=== PATIENT | male | born 1955 | race Caucasian/White ===

== ENCOUNTER 2019-12-10 13:00 | Outpatient (AMB) | payer MEDICAID, SELFPAY ==
[2019-12-10 13:00] VITALS: BMI 20.7
--- NOTE | 2019-12-10 13:00 | CWCCLINC_ITS ---
OP Palliative Care Referral source Referral Source: Follow-Up Visit (12/10/19 at 1:00 pm) Changes in weight Weight Change Additional comment: No current weight provided. Pt recall previous weight of 145 lbs. Height: 5'10 Nutritional Assessment Nutritional Assessment additional comments: Pt Ken reports he has improved appetite and has been eating good. No current weight available to assess; he states he feels his chest is alanis and he feels he is stronger. He is in the process of moving to [facility]) next Sunday. He is encouraged to connect with [facility] and palliative care team. Ken would like to consume more food or supplement that can promote his immune system. The ONS (Oral Nutrition Supplement) samples provided but Ken does not like the taste of it, states taste chalky. Discussed few ways to improve the taste of high kcal, high protein ONS with complete nutrition by diluting with milk, adding ice or making milk shake with his favorite peanut butter/chocolate ice cream. Increase intake of fruit and vegetables including green leafy vegetables also encouraged. Continue to encourage high kcal/high protein intake and anticipate desirable weight gain with improved intake. RDN available for additional nutrition counseling and support on demand prn. Education Education Recipient: Patient Follow-up Visit Follow up visit: No Follwo-up Visit comment: Pt is moving to other [facility] *CWC Office Visit complete CWC Offive Visit Complete CWC Visit Complete?: No Lung Cancer (pulmonary) History of Present Illness Lung Ca Results: Chest X-Ray 10/09/19
--- NOTE | 2019-12-12 12:35 | PR.OPPALCARP ---
Vital Signs 12/10/19 13:00 Height 1.78 m Height Method Stated Weight 65.771 kg Weight Measurement Method Stated by Patient BMI 20.7 Oxygen Delivery Method Room Air Comment Patient stated that pain level 0 out of 10; Dr. Saldaña aware OP Palliative Care List Name, Facility and location of PCP: None Review of symptoms: Has problems sleeping at times; low energy in the mornings How would you rate your diet: Good Do you have any of the following that interfere w/eating: No problems eating [facility] Comments: Called at 1:04 pm; Called Dr. Saldaña at 2:00 pm; Conference call ended 2:07 pm Email address: [email or web address] Telephone conference call was done due to no face to face appointments occurring at this time. Patient continues to not have a Primary Care Doctor and will not be getting one here due to moving out of state on Sunday (12/17/2019). Patient continues to use [facility] on [address] until he moves. Patient states that he will have labs drawn this Sunday (12/12/2019) and then will have a follow up with Dr. Vergara on Sunday (12/16/2019) prior to his leaving to [place]. Patient states that his estimated weight is 145 pounds and is 5?10?. Patient only uses oxygen at night is uses 3 L/min via nasal cannula. Patient stated that his pain level is 0 out of 10 and states that his back gets a little sore if he does too much. Verbal head to toe assessment was completed with patient over the phone. Patient stated that he has no short of breath and that he only uses his inhaler sparingly. Patient states that he continues to have an occasional cough but that it is not productive. Patient did state that he continues to have to clear his throat often and that his voice gets hoarse. Patient reports that there are no major skin issues and that he continues to only have dry skin. Patient has no swelling to the extremities. List Name, Facility and location of PCP: None Patient Diagnosis: Lung cancer Care Conf Coordinator: Korina Busch date/time/location: 12/10/2019 at 1 pm in the [facility] conference room on the conference phone Patient Diagnosis: Lung cancer Purpose of meeting: Palliative care Follow up appointment/symptom management Participants in meeting and relationship: Ken Valentin, Patient Johnna ZamoraJIM ramos, RN Ailyn Harmon, Dietitian Dr. Mundo Saldaña joined conference call at the end of the discussion with the patient. How are patients wishes known: Patient cognitive/verbal Who is the decision maker for the patient: Patient Issues addressed: Has problems sleeping at times; low energy in the mornings Discussion/Outcomes/Follow-up: Patient stated that his appetite was good and that he had no nausea or vomiting. Patient stated that his last bowel movement was yesterday (12/09/2019) and was ?good?. Patient reported that he can go 1 to 2 days without a bowel movement. Patient stated that last night?s sleep was good and that he was really tired. Patient also reported that his sleep is ?hit or miss? and tends to get more sleep towards the morning. Patient stated that his energy levels are ?fine once I get moving?. Patient stated that it takes a little bit to get going and is ?groggy? most of the time in the morning. Patient did have a question about his oxygen concentrator and what happens to it when he moves, Johnna stated that she will reach out to the company. Patient did report that he already has an oncologist up in [place] on 12/29/2019. His name is Dr. Gerardo and is with [facility] in [place], [place]. Patient reported that he is moving to his son?s house in [place]. Communication to other healthcare professionals: Made Dr. Saldaña aware of the patient?s issues. Please see JIM Oropeza, and RANULFO Robertson, notes for their recommendations for Dr. Saldaña. Review of symptoms management: Yes Symptom management recommnedations: See discussions Tenative date for F/U Patient family meeting: December 2019 List Name, Facility and location of PCP: None *CWC Office Visit complete CWC Offive Visit Complete CWC Visit Complete?: No Lung Cancer (pulmonary) History of Present Illness Lung Ca Results: Chest X-Ray 10/09/19
--- NOTE | 2019-12-17 10:12 | CWCCLINC_ITS ---
Vital Signs 12/10/19 13:00 Height 1.78 m Height Method Stated Weight 65.771 kg Weight Measurement Method Stated by Patient BMI 20.7 Oxygen Delivery Method Room Air Comment Patient stated that pain level 0 out of 10; Dr. Saldaña aware OP Palliative Care List Name, Facility and location of PCP: No primary care physician. Are you interested in help or information on the following: Cross Country Coach Patient would like more on Advance Directive: Yes Prognosis: Fair Advanced Care plan discussed: Yes Who patient wants involved in care decisions: Patient has named his daughter, Benja, to be his medical decision maker. Primary Medical Surrogate Decision Maker?: Yes Existing Advance Directive: Yes POLST Form: No Comments Additional Comments: Patient has named his daughter, Benja, to be his medical decision maker. Patient is a DNR/DNI, per existing ADVDIR. Primary Caregiver: Benja List Name, Facility and location of PCP: No primary care physician. Patient Diagnosis: Lung Cancer Prognosis: Fair Care Conf Coordinator: Johnna Busch date/time/location: On 12/10/2019, the palliative care meeting was in [facility] conference room at 1300. Patient Diagnosis: Lung Cancer Purpose of meeting: Follow Up Meeting/Symptoms Management Participants in meeting and relationship: Ken LeivaEdgardo Barbie, patient. RANULFO Lester MSW Tiffany Lu, RD How are patients wishes known: Advance Health Care Dire Who is the decision maker for the patient: Patient Issues addressed: Oxygen Transitioning to another state (i.e., Medicaid, SSDI, new CTC, oncologist) Pain Management Discussion/Outcomes/Follow-up: This is 64 year-old single, male, who presented to his Palliative Care follow up meeting via telephone conference. Involved in the conversation was patient, Oncologist, Dr. Saldaña; Palliative Care Registered Nurse, Korina; Ailyn [place]; and covering Nanny/Household Manager, Johnna. Korina introduced Johnna to patient due to Palliative Care Licensed Clinical Nanny/Household Manager, Ana M, is out on medical leave. Patient was agreeable to speak to new social studies teacher. Patient was residing at home in company of his daughter, Benja and her . However, Benja is moving back to the [place]. After significant consideration in patient moving to another state, patient has decided to move with his son, Fredy Valentin, whom resides in [facility]. Patient is moving on 12/17/2019, he will reside in [place], [place] is [place] of [facility]. Patient will be traveling by car in order to move all his house furniture. Patient reports feeling sad due to residing in [place] for more than 30 years, and having all his friends here. SW acknowledge patient?s feelings, and attempted to encourage patient by reminding him that he can still communicate with his friends by speaking to them via phone, face time, and text message. Patient reports that his friends and adult children are his main support system. 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 Patient reports that his main income comes from Social Security Disability. In addition, patient reports that he likes to maintain himself busy, and fixes cars as a hobby. Patient continues with his chemo medication. Patient denies receiving assistance with completing and doing any daily activities. Patient denies any usage of medical devices for ambulation. Patient does use 3 liters of supplemental oxygen at night. Patient was concerned due to moving to a different state. SW spoke to Gail [facility] who reported that the agency has another center an hour away from [place], [place]. Patient was able to continue with his oxygen regimen. He also uses a nebulizer and inhaler. Patient denies feeling any pain. He reports that he has been taking a pain killer before bed, and it helps him. Patient reports that his appetite is good. He denies any vomiting or nausea. Patient?s energy is within normal level. He did report taking a little bit longer to get off bed. He feels groggy. SW informed him that he could always try stretching after getting up from bed. Patient reports that he does not use any substance use. He does admit to smoking at least a pack of cigarettes per day. He was doing really well when he quit, but he has relapsed. Patient reports that he still occasionally drinks a few beers. Per patient, he denies having an issue. This social studies teacher was not able to assess patient?s mentation in person due to follow-up meeting was via telephone. Patient was awake, alert and oriented. Patient was responsive and receptive to the information being provided to him. Patient?s speech was within normal levels. Patient?s attitude was pleasant and cooperative. Patient?s behavior was unremarkable. Patient?s mood was euthymic and within normal limits. Patient reported that he felt sad due to moving to a different state. Patient?s thought, cognition, and judgement process was l ogical. Patient denies having suicidal or homicidal ideation. Patient has named his daughter, Benja, to be his medical decision maker. Patient is a DNR/DNI, per existing ADVDIR. Patient?s new CTC is [facility] in [place]. Patient reports that he has a follow up oncology appointment with Dr. Gerardo on 12/29/2019. Patient reminded patient to follow up with [facility] and Medicaid office in [place] to continue with financial and medical services. For more information regarding RN notes, please see Korina?s note; if in need of information regarding nutritional management, please see Ailyn?s note. Advanced Directive: Yes POLST Form: No Primary Medical Surrogate Decision Maker?: Yes List Name, Facility and location of PCP: No primary care physician. *CWC Office Visit complete CWC Offive Visit Complete CWC Visit Complete?: Yes Lung Cancer (pulmonary) History of Present Illness Lung Ca Results: Chest X-Ray 10/09/19
== END 2019-12-10 14:07 | disposition home or self-care (01) ==
LOC: HODCWC 14:06
PROVIDERS: PCP Radiology Therapeutic Radiology; Referring Provider Radiology Therapeutic Radiology; Visit Provider Radiology Therapeutic Radiology
DX: Z51.5 Encounter for palliative care (principal); C34.90 Malignant neoplasm of unspecified part of unspecified bronchus or lung